=== PATIENT | female | born 1980 | race Caucasian/White ===

== ENCOUNTER 2019-05-05 17:38 | Emergency (ER) | payer SELFPAY ==
[2019-05-05 17:52] VITALS: BP 171/78; PULSE 99; RESP 20; TEMP 37.2; O2SAT 98; BMI 37.1
--- NOTE | 2019-05-05 17:52 | USCV_ITS ---
Shannan Wray Age: 38 Gender: F : 1980 Exam Date: 05/05/2019 18:05 Ordering Phys: Angel Carrasco Technologist: Maile Han Exam Location: [facility] [place] Indication: Failed injection Rt Ante Cub space HISTORY: Failed injection Rt. AC Space. Arm swollen, red and extremely painful. PROCEDURES: Venous duplex imaging was performed in only the right upper extremity. The following venous structures were evaluated: internal jugular vein, subclavian vein, axillary vein, and brachial veins. In addition, the basilic vein, cephalic vein, radial vein, and ulnar vein. Serial compression, augmentation maneuvers, and spectral Doppler flow evaluation were performed. FINDINGS: No obvious DVT or superficial thrombus noted at this time. There appears to be edema and question of infiltration of injected material. This is somewhat ltd study because of patients extreme pain. The veins are found to be compressible with no evidence of thrombosis CONCLUSIONS No evidence of thrombosis in the above-mentioned identifiable veins Dr Sunita Ramos MD [facility] (Electronically Signed) Final Date: 06 May 2019 17:13 S
--- NOTE | 2019-05-05 17:54 | W.ED.EXTPRO ---
HPI - Extremity Problem General: Chief complaint: Extremity Injury, Upper Stated complaint: right arm swelling/pain Time Seen by Provider: 05/05/19 17:50 History of Present Illness: HPI Narrative: Patient comes in today for complaints of right arm pain with redness and swelling. Patient admits to using IV methamphetamines yesterday. Patient states today she woke up and she noticed redness and tenderness to the arm. Patient appears restless. Patient appears in moderate pain. Review of Systems General: Reports: 10 or more systems reviewed and unremarkable except in HPI and below Skin/Breast: Reports: redness (appears urticaric to right inner arm) PFS ED PFSH: Statuses (acute, chronic, etc) shown below reflect problem list status as previously entered and may not be historically accurate Social History Smoking and tobacco status: current every day smoker Physical Exam Const: COMMON NORMALS: no apparent distress and oriented x3 GENERAL APPEARANCE: cooperative HENMT: COMMON NORMALS: normocephalic, external ears normal, EAC's normal, TM's normal bilaterally and external nose normal HEAD & SCALP: normal to inspection and normocephalic FACE & SINUS: normal facial exam NOSE: external nose normal GENERAL EAR: hearing not grossly impaired EXTERNAL EAR: Yes external ears normal EXTERNAL AUDITORY CANAL: EAC's normal TYMPANIC MEMBRANE: TM's normal bilaterally MOUTH: oral and palatal mucosa normal THROAT: posterior oropharynx normal Eye: COMMON NORMALS: PERRL and EOMs intact bilaterally PUPIL: Yes PERRL Neck/C-Spine: COMMON NORMALS: full ROM and no lymphadenopathy Lymph: LYMPHATIC: no lymphedema noted Chest: COMMONS NORMALS: inspection of chest normal and palpation of chest normal Resp: COMMON NORMALS: normal respiratory effort and clear to auscultation bilaterally AUSCULTATION: clear to auscultation bilaterally Cardio: COMMON NORMALS: regular rate and regular rhythm RATE: regular rate RHYTHM: regular rhythm GI: COMMON NORMALS: normal to inspection, nondistended, normoactive bowel sounds and non-tender : COMMON NORMALS: Yes no CVA tenderness BLADDER/KIDNEY EXAM: Yes no CVA tenderness Back/Pelvis: COMMON NORMALS: no CVA tenderness and thoracic and lumbar spine normal to inspection Extremity: COMMON NORMALS: normal to inspection GENERAL: No edema Neuro: COMMON NORMALS: oriented x3, moves all extremities and no focal motor deficits Psych: COMMON NORMALS: mental status grossly normal and cooperative Skin: NARRATIVE SKIN EXAM: red urticaric eruption to right inner arm, distal pulses intact. Patient guarded with movement. Course Vital Signs: Vital signs: Vital Signs Temperature 99.0 F 05/05/19 18:16 Pulse Rate 91 05/05/19 18:17 Respiratory Rate 18 05/05/19 18:16 Blood Pressure 156/90 05/05/19 18:16 Pulse Oximetry 99 05/05/19 18:16 MDM - Extremity (Nontraumatic) MDM Narrative: Medical decision making narrative: Patient comes in today for concerns of redness and tenderness to her right arm. Patient admits to injecting meth yesterday into that arm. Patient exam notes some urticarial type redness to the right arm. Respirations are even lungs are clear to auscultation. Skin is warm and dry color is pink. Vital signs are stable. Differential diagnosis includes allergic reaction, urticaria, cellulitis, DVT, thrombophlebitis. Ultrasound extremity noted no thrombus or DVT. I suspect patient had a extravasation of the injection into this cellular tissue instead of into the vein that caused this reaction and extravasation event. Recommended warm packs to the area, encourage patient to drink plenty of fluids, will cover with Bactrim for cellulitis, and cover with ibuprofen to help with pain. Recommend follow-up with primary care return to the ER for high fever or new concerns. Discharge Plan Discharge Patient Disposition: Home, Self-Care Clinical Impression: Extravasation injury, Substance abuse Condition: Stable Prescriptions: New ibuprofen 800 mg tablet 800 mg PO TID PRN (Reason: pain) Qty: 30 RF: 0 Bactrim DS 800-160 mg tablet 1 tab PO BID 10 Days Qty: 20 RF: 0 Discharge Orders: Discharge Order (Routine); Ordered 05/05/19 Ordered By: Angel Carrasco Referrals: Luis Fernando Duarte FNP [Family Provider] - Discharge Diet: Usual diet Discharge Activity: Increase activity as tolerated Patient Instructions: Cellulitis (ED) Activity Restrictions/Additional Instructions: Home and rest Warm compresses to the arm Drink plenty of water Medications as directed Follow-up with primary care in three days Return to ER for high fever or new concerns Stand Alone Forms: Work/School Release Coding Level of Care Code ED Floor And Wall Applier Liquid for Kim Fwgilbert Exam Problem Focused
[2019-05-05] MEDS: diphenhydrAMINE 50 mg/mL SDV 1mL IM (18:05)
[2019-05-05] MEDS: HYDROcodone-acetaminophen 7.5-325 mg Tablet 1 TAB PO (18:08)
[2019-05-05 18:16] VITALS: BP 156/90; PULSE 91; RESP 18; TEMP 37.2; O2SAT 99
[2019-05-05 18:17] VITALS: PULSE 91
[2019-05-05 19:59] VITALS: BP 150/81; PULSE 89; RESP 19; O2SAT 98
== END 2019-05-05 20:00 | disposition home or self-care (01) ==
PROVIDERS: Emergency Provider Nurse Practitioner Family; Family Provider Nurse Practitioner Family
DX: T43.621A Poisoning by amphetamines, accidental (unintentional), initial encounter (principal); F15.10 Other stimulant abuse, uncomplicated; F17.210 Nicotine dependence, cigarettes, uncomplicated
CPT/HCPCS: 93971; 96372; 99281; 99284; J1200

== ENCOUNTER 2020-05-07 17:36 | Inpatient (IN) | payer SELFPAY ==
[2020-05-07 17:51] VITALS: BP 161/98; PULSE 83; RESP 14; TEMP 36.4; O2SAT 100; BMI 35.5
--- NOTE | 2020-05-07 18:04 | ED_ITS ---
HPI - Psych General: Chief Complaint: Psychiatric Symptoms Stated Complaint: SI Time Seen by Provider: 05/07/20 18:00 History of Present Illness: HPI Narrative: Patient long history of drug abuse. Patient was in drug court today and she told that she needed help that she did not want to go on living and she is hoping that doing drugs will end her life. She is very tearful and wants her life to be over with. she states she wants help from her drug addiction and her depression she does not have a plan MD complaint: suicidal ideation and feels depressed Onset (ago): year(s) Duration: getting worse History of same: Yes Relieving factors: none Exacerbating factors: drug use Context: recent drug abuse (Meth) Associated psychiatric symptoms: depression and suicidal ideation Associated symptoms: Reports depression and suicidal ideation Review of Systems Const: Denies: fever(s), chills or body aches Eyes: Denies: change in vision or blurry vision ENMT: Denies: throat pain or nasal congestion Card: Denies: chest pain or dyspnea on exertion Resp: Denies: dyspnea, productive cough or non-productive cough GI: Denies: abdominal pain, nausea or vomiting Musc: Denies: extremity pain Skin/Breast: Denies: rash Neuro: Denies: headache(s) Psych: Reports: depression and suicidal ideation; Denies: anxiety Butch/Lymph: Denies: easy bruising PFSH ED PFSH: Social History Smoking and tobacco status: current every day smoker Current gender identity: Female Physical Exam Const: COMMON NORMALS: no acute distress, average body habitus and patient oriented x3 HENMT: COMMON NORMALS: normocephalic HEAD & SCALP: normal to inspection and normocephalic FACE & SINUS: normal facial exam Eye: COMMON NORMALS: conjunctivae normal GENERAL EYE: appearance normal, both eyes and all related structures CONJUNCTIVA: Yes conjunctivae normal Neck/C-Spine: COMMON NORMALS: no JVD Chest: COMMONS NORMALS: normal inspection of the chest Resp: COMMON NORMALS: normal respiratory effort and clear to auscultation bilaterally AUSCULTATION: clear to auscultation bilaterally Cardio: COMMON NORMALS: no JVD, regular rate and regular rhythm RATE: regular rate RHYTHM: regular rhythm GI: COMMON NORMALS: Normal to inspection, nondistended, normoactive bowel sounds present Extremity: COMMON NORMALS: normal to inspection and full ROM Neuro: COMMON NORMALS: patient oriented x3 Psych: COMMON NORMALS: mental status grossly normal, cooperative and speech normal ATTITUDE: Yes calm ACTIVITY/MOTOR BEHAVIOR: Yes appropriate eye contact SPEECH: Yes normal speech MOOD & AFFECT: Yes depressed mood MDM - Psych MDM Narrative: Medical decision making narrative: Spoke with Dr. Metcalf he will admit patient to neuropsych Lab Data: Labs: Lab Results 05/07/20 05/07/20 05/07/20 Range/Units 18:12 18:12 20:51 WBC 6.9 (4.0-10.0) 10^3/ uL RBC 5.37 H (4.1-5.3) 10^6/u L Hgb 15.8 H (11.5-15.3) g/dL Hct 47.4 H (37.0-47.0) % MCV 88.3 (81-99) fL MCH 29.4 (28.0-34.0) pg MCHC 33.3 (30.0-36.0) g/dL RDW 12.1 (12.1-15.1) % Plt Count 275 (130-400) 10^3/c mm MPV 10.0 (7.4-10.4) fL Neut % (Auto) 56.5 % Lymph % (Auto) 32.8 % Saunders % (Auto) 7.9 % Eos % (Auto) 1.9 % Baso % (Auto) 0.6 % Neut # (Auto) 3.91 (1.8-7.7) 10^3/u L Lymph # (Auto) 2.3 (0.8-4.8) 10^3/u L Saunders # (Auto) 0.6 (0.2-0.9) 10^3/u L Eos # (Auto) 0.1 (0.0-0.8) 10^3/u L Baso # (Auto) 0.0 (0.0-0.1) 10^3/u L Nucleated RBC % (a uto) 0 % Nucleated RBCs # 0.0 /100WBC Sodium 137 (136-145) mmol/L Potassium 3.4 L (3.5-5.1) mmol/L Chloride 98 (98-107) mmol/L Carbon Dioxide 29 (22-29) mmol/L Anion Gap 13.4 (5-19) BUN 12 (6-20) mg/dL Creatinine 0.5 (0.5-0.9) mg/dL GFR Calculation 137.4 H (90-130) mL/min Glucose 85 (65-115) mg/dL Calculated Osmolal ity 283 L (285-295) mOsm/k g Calcium 9.2 (8.5-10.5) mg/dL Total Bilirubin 0.3 (0.15-1.2) mg/dL AST 41 H (0-32) U/L ALT 45 H (0-33) U/L Alkaline Phosphata se 74 (35-105) IU/L Total Protein 8.2 (6.6-8.7) g/dL Albumin 4.5 (3.5-5.2) g/dL Globulin 3.7 (1.3-4.6) g/dL Urine Color (Yellow) Urine Appearance (CLEAR) Urine pH (5-7) Ur Specific Gravit y (1.005-1.030) Urine Protein (Negative) Urine Glucose (UA) (Normal) Urine Ketones (Negative) Urine Blood (Negative) Urine Nitrate (Negative) Urine Bilirubin (Negative) Urine Urobilinogen (Negative) mg/dL Ur Leukocyte Daniela ase (Negative) Urine RBC (0-2) /hpf Urine WBC (0-5) /hpf Ur Squamous Epith Cells (0-5) /hpf Amorphous Sediment Urine Bacteria (NONE) /hpf Urine Mucus /hpf Salicylates 0.4 L (3-10) mg/dL Urine Opiates Scre en Negative (Negative) ng/mL Acetaminophen < 5.0 L (10-30) ug/mL Ur Barbiturates Sc reen Negative (Negative) ng/mL Ur Phencyclidine S crn Negative (Negative) ng/mL Ur Amphetamines Sc reen Positive H (Negative) ng/mL U Benzodiazepines Scrn Negative (Negative) ng/mL Urine Cocaine Scre en Negative (Negative) ng/mL U Marijuana (THC) Screen Positive H (Negative) ng/mL Ethyl Alcohol < 10 (0-10) mg/dL 05/07/20 Range/Units 20:51 WBC (4.0-10.0) 10^3/ uL RBC (4.1-5.3) 10^6/u L Hgb (11.5-15.3) g/dL Hct (37.0-47.0) % MCV (81-99) fL MCH (28.0-34.0) pg MCHC (30.0-36.0) g/dL RDW (12.1-15.1) % Plt Count (130-400) 10^3/c mm MPV (7.4-10.4) fL Neut % (Auto) % Lymph % (Auto) % Saunders % (Auto) % Eos % (Auto) % Baso % (Auto) % Neut # (Auto) (1.8-7.7) 10^3/u L Lymph # (Auto) (0.8-4.8) 10^3/u L Saunders # (Auto) (0.2-0.9) 10^3/u L Eos # (Auto) (0.0-0.8) 10^3/u L Baso # (Auto) (0.0-0.1) 10^3/u L Nucleated RBC % (a uto) % Nucleated RBCs # /100WBC Sodium (136-145) mmol/L Potassium (3.5-5.1) mmol/L Chloride (98-107) mmol/L Carbon Dioxide (22-29) mmol/L Anion Gap (5-19) BUN (6-20) mg/dL Creatinine (0.5-0.9) mg/dL GFR Calculation (90-130) mL/min Glucose (65-115) mg/dL Calculated Osmolal ity (285-295) mOsm/k g Calcium (8.5-10.5) mg/dL Total Bilirubin (0.15-1.2) mg/dL AST (0-32) U/L ALT (0-33) U/L Alkaline Phosphata se (35-105) IU/L Total Protein (6.6-8.7) g/dL Albumin (3.5-5.2) g/dL Globulin (1.3-4.6) g/dL Urine Color [place] (Yellow) Urine Appearance Hazy A (CLEAR) Urine pH 6 (5-7) Ur Specific Gravit y 1.030 (1.005-1.030) Urine Protein Trace (Negative) Urine Glucose (UA) Trace H (Normal) Urine Ketones Negative (Negative) Urine Blood Neg (Negative) Urine Nitrate Positive H (Negative) Urine Bilirubin Neg (Negative) Urine Urobilinogen Norm (Negative) mg/dL Ur Leukocyte Daniela ase 1+ H (Negative) Urine RBC 0-4 H (0-2) /hpf Urine WBC 5-10 H (0-5) /hpf Ur Squamous Epith Cells 0-4 H (0-5) /hpf Amorphous Sediment Not Reportable Urine Bacteria 2+ H (NONE) /hpf Urine Mucus 3+ /hpf Salicylates (3-10) mg/dL Urine Opiates Scre en (Negative) ng/mL Acetaminophen (10-30) ug/mL Ur Barbiturates Sc reen (Negative) ng/mL Ur Phencyclidine S crn (Negative) ng/mL Ur Amphetamines Sc reen (Negative) ng/mL U Benzodiazepines Scrn (Negative) ng/mL Urine Cocaine Scre en (Negative) ng/mL U Marijuana (THC) Screen (Negative) ng/mL Ethyl Alcohol (0-10) mg/dL Discharge Plan Discharge Condition: Good Prescriptions: No Action buspirone 5 mg tablet 7.5 mg PO BID RF: 0 ibuprofen 800 mg tablet 800 mg PO TID PRN (Reason: pain) Qty: 30 RF: 0 Coding Level of Care Code ED Seam Rubbing Machine Operator for Chg Fwd Exam Comprehensive
[2020-05-07 18:21] LABS: Basophils % 0.6 %; Eosinophils # 0.1 10^3/uL (0.0-0.8); Eosinophils % 1.9 %; Hematocrit 47.4 % (37.0-47.0); Hemoglobin 15.8 g/dL (11.5-15.3); Lymphocytes # 2.3 10^3/uL (0.8-4.8); Lymphocytes % 32.8 %; Mean Corpuscular HGB Conc 33.3 g/dL (30.0-36.0); Mean Corpuscular Hemoglobin 29.4 pg (28.0-34.0); Mean Corpuscular Volume 88.3 fL (81-99); Monocytes # 0.6 10^3/uL (0.2-0.9); Monocytes % 7.9 %; Neutrophils # 3.91 10^3/uL (1.8-7.7); Neutrophils % 56.5 %; Nucleated Red Blood Cells % 0 %; Platelet Count 275 10^3/cmm (130-400); Red Blood Count 5.37 10^6/uL (4.1-5.3); Red Cell Distribution Width 12.1 % (12.1-15.1); White Blood Count 6.9 10^3/uL (4.0-10.0)
[2020-05-07 18:42] LABS: Alanine Aminotransferase 45 U/L (0-33); Albumin Level 4.5 g/dL (3.5-5.2); Alkaline Phosphatase 74 IU/L (35-105); Anion Gap 13.4 (5-19); Aspartate Amino Transferase 41 U/L (0-32); Blood Urea Nitrogen 12 mg/dL (6-20); Calcium 9.2 mg/dL (8.5-10.5); Carbon Dioxide 29 mmol/L (22-29); Chloride 98 mmol/L (98-107); Globulin 3.7 g/dL (1.3-4.6); Glomerular Filtration Rate 137.4 mL/min (90-130); Glucose 85 mg/dL (65-115); Osmolality Calculated 283 mOsm/kg (285-295); Potassium 3.4 mmol/L (3.5-5.1); Salicylate 0.4 mg/dL (3-10); Sodium 137 mmol/L (136-145); Total Bilirubin 0.3 mg/dL (0.15-1.2); Total Protein 8.2 g/dL (6.6-8.7)
[2020-05-07 18:54] LABS: Acetaminophen < 5.0 ug/mL (10-30); Alcohol Level < 10 mg/dL (0-10)
[2020-05-07 21:22] LABS: Amphetamines Screen Urine Positive (Negative); Barbiturates Screen Urine Negative (Negative); Benzodiazepines Screen Urine Negative (Negative); Cocaine Screen Urine Negative (Negative); Opiate Screen Urine Negative (Negative); PCP Screen Urine Negative (Negative); THC Screen Urine Positive (Negative)
[2020-05-07 21:25] LABS: Blood Urine Neg (Negative); Glucose Urine UA Trace (Normal); Ketones Urine Negative (Negative); Nitrate Urine Positive (Negative); Protein Urine Trace (Negative); Urine Appearance Hazy (CLEAR); Urine Color Orange (Yellow); pH Urine 6 (5-7)
[2020-05-07 21:26] LABS: Add Urine Microscopic? YES; Bilirubin Urine Neg (Negative); Leukocyte Esterase Urine 1+ (Negative); Urobilinogen Urine Norm (Negative)
[2020-05-07 21:30] LABS: Add Urine Culture? Yes; Bacteria Urine 2+ /hpf; Mucus Urine 3+ /hpf; RBC Urine 0-4 /hpf (0-2); Squamous Epithelial Cell Urine 0-4 /hpf (0-5)
[2020-05-07 22:29] LABS: HCG Qualitative Urine. Negative (Negative)
[2020-05-07 22:32] VITALS: BP 159/92; PULSE 78; RESP 14; O2SAT 98
[2020-05-07 22:50] VITALS: BP 127/86; PULSE 74; RESP 18; TEMP 36.8; O2SAT 99
[2020-05-07] MEDS: nicotine 2 mg Gum BUCCAL (23:07)
[2020-05-07] MEDS: hyDROXYzine 25 mg Capsule 50 MG PO (23:07)
[2020-05-07] MEDS: trazodone 50 mg Tablet PO (23:07)
[2020-05-07] MEDS: OLANZapine 5 mg ODT PO (23:50)
[2020-05-08 06:00] VITALS: BP 101/62; PULSE 68; RESP 19; TEMP 36.3; O2SAT 96
--- NOTE | 2020-05-08 08:31 | PC.NURSE ---
INFLUENZA VACCINE, 1 SINGLE DOSE GIVEN IM IN LEFT DELTOID. PT EDUCATED ON MED GIVEN AND VERBALIZED UNDERSTANDING. WILL CONT TO MONITOR INJECTION SITE FOR ANY REDNESS, SWELLING, OR IRRITATION. LOT [id number] EXP 10/02/20
[2020-05-08 13:51] VITALS: BP 126/69; PULSE 67; RESP 18; TEMP 37.1; O2SAT 94
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
--- NOTE | 2020-05-08 17:00 | PC.RESP ---
Smoking Cessation information sent to patient.
[2020-05-08 20:21] VITALS: BP 121/75; PULSE 68; RESP 18; TEMP 36.7; O2SAT 96
[2020-05-08] MEDS: hyDROXYzine 25 mg Capsule 50 MG PO (20:41)
[2020-05-08] MEDS: trazodone 50 mg Tablet PO (20:42)
[2020-05-09 06:00] VITALS: BP 114/60; PULSE 66; RESP 16; TEMP 37; O2SAT 95
[2020-05-09] MEDS: fluoxetine 20 mg Capsule PO (07:58)
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
[2020-05-09 13:26] VITALS: BP 135/81; PULSE 55; RESP 18; TEMP 37.1; O2SAT 98
[2020-05-09] MEDS: prazosin 1 mg Capsule PO (21:20)
[2020-05-09 21:21] VITALS: BP 129/75; PULSE 57; RESP 18; TEMP 36.6; O2SAT 93
[2020-05-10 06:00] VITALS: BP 224/73; PULSE 57; RESP 15; TEMP 36.6; O2SAT 93
[2020-05-10] MEDS: fluoxetine 20 mg Capsule PO (08:13)
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
[2020-05-10 14:00] VITALS: RESP 18
[2020-05-10 14:14] VITALS: BP 224/73; PULSE 57; RESP 15; TEMP 36.6; O2SAT 93
== END 2020-05-10 15:23 | disposition home or self-care (01) | DRG 881 ==
LOC: ER 21:34 → NP 22:17
PROVIDERS: Admitting Provider Psychiatry & Neurology Psychiatry; Emergency Provider Nurse Practitioner Family; PCP Nurse Practitioner Family; Visit Provider Psychiatry & Neurology Psychiatry
DX: F32.9 Major depressive disorder, single episode, unspecified (principal); R45.851 Suicidal ideations; F12.10 Cannabis abuse, uncomplicated; F17.210 Nicotine dependence, cigarettes, uncomplicated; Z62.810 Personal history of physical and sexual abuse in childhood
CPT/HCPCS: 12345; 36415; 80053; 80306; 80307; 81001; 81025; 85025; 87086; 90471; 90686; 99284

== ENCOUNTER 2021-04-15 11:27 | Emergency (ER) | payer SELFPAY ==
[2021-04-15 11:56] VITALS: BP 194/95; PULSE 67; RESP 16; TEMP 36.7; O2SAT 96; BMI 37.1
[2021-04-15 14:31] LABS: Basophils % 0.6 %; Eosinophils # 0.1 10^3/uL (0.0-0.8); Eosinophils % 1.8 %; Hematocrit 43.9 % (37.0-47.0); Hemoglobin 14.5 g/dL (11.5-15.3); Lymphocytes # 1.5 10^3/uL (0.8-4.8); Lymphocytes % 20.2 %; Mean Corpuscular Hemoglobin 28.9 pg (28.0-34.0); Mean Corpuscular Volume 87.6 fl (81-99); Mean Platelet Volume 9.8 fL (7.4-10.4); Monocytes # 0.6 10^3/uL (0.2-0.9); Monocytes % 8.2 %; Neutrophils # 4.99 10^3/uL (1.8-7.7); Neutrophils % 68.9 %; Nucleated Red Blood Cells % 0 %; Platelet Count 252 10^3/cmm (130-400); Red Blood Count 5.01 10^6/uL (4.1-5.3); Red Cell Distribution Width 12.4 % (12.1-15.1); White Blood Count 7.2 10^3/uL (4.0-10.0)
--- NOTE | 2021-04-15 14:50 | PC.NURSE ---
1440- dr. Mack and Leticia Nuñez at bedside performing pelvic procedure. patient in no obvious distress.
--- NOTE | 2021-04-15 14:53 | ED_ITS ---
HPI - General Adult General: Chief complaint: Vaginal Bleeding Stated complaint: Bleeding heavy for 20 day with clots Time Seen by Provider: 04/15/21 14:04 History of Present Illness: HPI narrative: Patient is a 46-year-old female with no significant past medical history presents emergency room with complaints of vaginal bleeding worsening over the last 20 days. Patient has no prior history of menorrhagia. Patient has been better. Start about 20 days, since then, patient has had worsening/heavy bleeding with passage of clots. Patient reports that she went through about 4 pads today in 1 hr. Patient is not sexually active denies any vaginal discharge, has no blood thinner or antiplatelet use. Onset: 20 days pena Duration:20 days Location:home Severity:moderate Associated symptoms: Deny chest pain, dyspnea, nausea, rash, palpitations or vomiting Review of Systems Const: Denies: fever(s) or chills Eyes: Denies: change in vision ENMT: Denies: mouth pain Card: Denies: chest pain or palpitations Resp: Denies: dyspnea or non-productive cough GI: Denies: abdominal pain, nausea, vomiting or diarrhea : Reports: vaginal bleeding; Denies: dysuria Musc: Denies: extremity pain Skin/Breast: Denies: rash or new lesions Neuro: Denies: weakness in extremities Psych: Reports: other (Normal mood) Butch/Lymph: Denies: easy bruising PFSH ED PFSH: Medical History Strain of right knee Family History (Updated 04/15/21 @ 15:59 by Klaus Mack MD) Denies family history of Bleeding disorder Cancer Social History Smoking and tobacco status: current every day smoker cigarettes Packs smoked per day: 0.25 Years cigarettes smoked: 30 Quit status (tobacco): considering quitting Second hand smoke exposure: Yes Current gender identity: Female Female Reproductive History: Date of last menstrual period: 04/15/21 Physical Exam Const: COMMON NORMALS: alert HENMT: COMMON NORMALS: atraumatic HEAD & SCALP: atraumatic MOUTH: moist mucous membranes not abnormal Eye: COMMON NORMALS: EOMs intact bilaterally and conjunctivae normal CONJUNCTIVA: Yes conjunctivae normal Neck/C-Spine: COMMON NORMALS: full ROM and supple Resp: COMMON NORMALS: normal respiratory effort and clear to auscultation bilaterally AUSCULTATION: clear to auscultation bilaterally Cardio: COMMON NORMALS: regular rate RATE: regular rate GI: COMMON NORMALS: Soft to palpation and non-tender PALPATION: Yes Soft to palpation : BIMANUAL EXAM - ADNEXA, OTHER: Yes Other OTHER: Exam supervised by Leticia RN, External genitalia wnl. No erythema around cervical os, os closed, no discharge, +mild pool of blood in the vaginal vault, no active source of bleeding. No CMT, no adnexal tenderness. Extremity: COMMON NORMALS: full ROM Neuro: SENSORIUM/ORIENTATION: Yes alert MOTOR EXAM: No Abnormal motor strength present and Other motor observations present (no focal motor deficits) Psych: COMMON NORMALS: speech normal SPEECH: Yes normal speech MOOD & AFFECT: Yes euthymic mood Course Vital Signs: Vital signs: Vital Signs Temperature 98.0 F 04/15/21 11:56 Pulse Rate 63 04/15/21 18:12 Respiratory Rate 16 04/15/21 18:12 Blood Pressure 153/78 04/15/21 18:12 Pulse Oximetry 96 04/15/21 18:12 MDM - General Adult MDM Narrative: Medical decision making narrative: Patient is a 40-year-old female presents emergency room with 20 days of heavy vaginal bleeding. Exam, patient is hemodynamically stable, no conjunctival pallor. Hemoglobin of 14.5 today. Patient has no signs of active bleeding on pelvic exam. Transvaginal ultrasound did not show any focal findings. hCG negative. I have discussed case with Dr. Palacio. She recommended close outpatient follow- up for biopsy. She does not recommend any outpatient medicine (including OCP and progerstone pills) at this time prior to biopsy. I have given patient follow up with our rn case manager hospice to be seen by Dr. Palacio for bleeding and possible biopsy. Patient aware of a call from our rn case manager hospice to schedule for appointment(s) and verbalizes understanding of the importance of following up. Disposition: Discharge. Patient counseled regarding diagnostic impression, treatment plan. Patient given ED strict return precautions to return for co ntinuation, worsening, or development of new symptoms. Instructed to f/u w/ Dr. Palacio and PCP regarding symptoms today. Patient verbalized understanding. She was given strict return precaution for any worsening bleeding, lightheadedness, or any new or concerning complaints. Lab Data: Labs: Lab Results 04/15/21 04/15/21 04/15/21 14:18 14:18 14:18 WBC 7.2 10^3/uL 10^3/ uL (4.0-10.0) RBC 5.01 10^6/uL 10^6 /uL (4.1-5.3) Hgb 14.5 g/dL g/dL (11.5-15.3) Hct 43.9 % % (37.0-47.0) MCV 87.6 fl fl (81-99) MCH 28.9 pg pg (28.0-34.0) MCHC 33.0 g/dL g/dL (30.0-36.0) RDW 12.4 % % (12.1-15.1) Plt Count 252 10^3/cmm 10^3 /cmm (130-400) MPV 9.8 fL fL (7.4-10.4) Neut % (Auto) 68.9 % % Lymph % (Auto) 20.2 % % Caswell % (Auto) 8.2 % % Eos % (Auto) 1.8 % % Baso % (Auto) 0.6 % % Neut # (Auto) 4.99 10^3/uL 10^3 /uL (1.8-7.7) Lymph # (Auto) 1.5 10^3/uL 10^3/ uL (0.8-4.8) Caswell # (Auto) 0.6 10^3/uL 10^3/ uL (0.2-0.9) Eos # (Auto) 0.1 10^3/uL 10^3/ uL (0.0-0.8) Baso # (Auto) 0.0 10^3/uL 10^3/ uL (0.0-0.1) Nucleated RBC % (a uto) 0 % % Nucleated RBCs # 0.0 /100WBC /100W BC APTT 47.0 SECONDS H SE CONDS (23.9-36.7) HCG, Qual Urine Color Urine Appearance Urine pH Ur Specific Gravit y Urine Protein Urine Glucose (UA) Urine Ketones Urine Blood Urine Nitrate Urine Bilirubin Urine Urobilinogen Ur Leukocyte Daniela ase Urine RBC Urine WBC Ur Squamous Epith Cells Amorphous Sediment Urine Bacteria Blood Type O Positive Rho(D) Type Positive Antibody Screen Negative 04/15/21 04/15/21 15:20 15:20 WBC RBC Hgb Hct MCV MCH MCHC RDW Plt Count MPV Neut % (Auto) Lymph % (Auto) Caswell % (Auto) Eos % (Auto) Baso % (Auto) Neut # (Auto) Lymph # (Auto) Caswell # (Auto) Eos # (Auto) Baso # (Auto) Nucleated RBC % (a uto) Nucleated RBCs # APTT HCG, Qual Negative (Negative) Urine Color Yellow (Yellow) Urine Appearance Clear (CLEAR) Urine pH 5 (5-7) Ur Specific Gravit y 1.025 (1.005-1.030) Urine Protein Trace (Negative) Urine Glucose (UA) Norm (Normal) Urine Ketones Negative (Negative) Urine Blood 3+ H (Negative) Urine Nitrate Negative (Negative) Urine Bilirubin 1+ H (Negative) Urine Urobilinogen 4 mg/dL H mg/dL (Negative) Ur Leukocyte Daniela ase Negative (Negative) Urine RBC 50-80 /hpf H /hpf (0-2) Urine WBC Rare /hpf /hpf (0-5) Ur Squamous Epith Cells Rare /hpf /hpf (0-5) Amorphous Sediment 4+ /hpf /hpf Urine Bacteria Trace /hpf /hpf (NONE) Blood Type Rho(D) Type Antibody Screen Imaging Data^: Other Imaging: Radiologist's impression: [address] [id number] ReportSigned Patient: Shannan Wray StarUnit #: [id number]: [id number]#:[id number]/Sex: 40 / FADM Date: 04/15/21Loc: ERRoom/Bed:Attending Dr: Ordering Provider/Ordering MD: Klaus Mack MD Date of Service: 04/15/21 Procedure(s): US transvaginal [id number] Accession Number(s): [id number] Report Number: [id number] PROCEDURE INFORMATION: Exam: US Pelvis, Transvaginal Exam date and time: 04/15/2021 3:31 PM Age: 40 years old Clinical indication: Condition or disease; Other: Bleeding x20 days; Prior surgery; Surgery date: 6+ months; Surgery type: Tubes tied; Additional info: Eval for endometrial thickening TECHNIQUE: Imaging protocol: Real-time transvaginal pelvic ultrasound with image documentation. Transvaginal imaging was used for better evaluation of the endometrium, adnexa, and/or cervix. COMPARISON: CT abdomen pelvis w con* [id number] 09/16/2015 12:17 AM FINDINGS: Uterus: Uterus measures 8.8 cm longitudinal x 4.8 cm AP x 5.7 cm transverse. No solid uterine mass demonstrated. Endometrium measures 11 mm in AP thickness. Cervix: Small nabothian cysts are noted in the cervix. Right ovary/adnexa: Right ovary measures 3.3 x 2.1 x 2.1 cm. Appropriate ovarian blood flow is documented by Doppler. There are 2 simple right adnexal cysts, measuring 1.8 cm and 1.4 cm in diameter respectively. These represent exophytic right ovarian cysts versus paraovarian cysts. Additional small follicular type cysts are demonstrated in the right ovary. Left ovary/adnexa: The left ovary measures 1.7 x 1.2 x 2.2 cm. A slightly complex 9 mm left ovarian cyst noted, likely representing a small hemorrhagic cyst. Additional smaller follicular cysts are noted. Intraperitoneal space: No free intraperitoneal fluid noted in the cul-de-sac. US/US transvaginal [id number] IMPRESSION: 1. Sonographically normal uterus. The endometrium is unremarkable, measuring 11 mm in AP thickness and demonstrating normal echotexture. No endometrial mass/lesion demonstrated. 2. There are 2 simple right adnexa cysts representing exophytic ovarian cyst versus paraovarian cysts. The right adnexal area is otherwise unremarkable. 3. 9 mm hemorrhagic cyst in the left ovary. The left ovary is otherwise unremarkable. Dictated By:Marvin Pal MDSigned By:Marvin Pal MDSigned Date/Time:04/15/21 1754DD/ 1531 Discharge Plan Discharge Patient Disposition: Home Clinical Impression: Vaginal bleeding Condition: Stable Prescriptions: No Action ibuprofen 800 mg tablet 800 mg PO BID PRN (Reason: pain) 20 Days Qty: 40 RF: 0 trazodone 50 mg tablet 100 mg PO .HS PRN (Reason: insomnia) Qty: 60 RF: 2 prazosin 5 mg capsule 10 mg PO .HS Qty: 60 RF: 2 bupropion HCl 150 mg tablet extended release 24 hr 150 mg PO QAM Qty: 30 RF: 2 fluoxetine 20 mg capsule 20 mg PO DAILY 30 Days Qty: 30 RF: 2 hydroxyzine pamoate 25 mg capsule 25 mg PO TID PRN (Reason: anxiety) Qty: 90 RF: 2 naltrexone 50 mg tablet 25 mg PO BID Qty: 30 RF: 2 Discharge Orders: Discharge ED (Routine); Ordered 04/15/21 Ordered By: Klaus Mack Referrals: Luis Fernando Duarte FNP [Primary Care Provider] - Discharge Diet: Advance as tolerated Discharge Activity: Resume usual activity Patient Instructions: Abnormal (Dysfunctional) Uterine Bleeding (ED) Activity Restrictions/Additional Instructions: Our rn case manager hospice will have you follow-up with Dr. Palacio in the next few days for a biopsy. You would be expected to have a phone call with our rn case manager hospice who will put you on the schedule. If you don't hear from us, call: Come back to the emergency we have noticed any significant bleeding, headedness, difficulty breathing, or any new or concerning complaints Coding Level of Care Code ED Roll Grinder Operator for Chg Fwd Exam Comprehensive
--- NOTE | 2021-04-15 15:31 | USR_ITS ---
PROCEDURE INFORMATION: Exam: US Pelvis, Transvaginal Exam date and time: 04/15/2021 3:31 PM Age: 40 years old Clinical indication: Condition or disease; Other: Bleeding x20 days; Prior surgery; Surgery date: 6+ months; Surgery type: Tubes tied; Additional info: Eval for endometrial thickening TECHNIQUE: Imaging protocol: Real-time transvaginal pelvic ultrasound with image documentation. Transvaginal imaging was used for better evaluation of the endometrium, adnexa, and/or cervix. COMPARISON: CT abdomen pelvis w con* [id number] 09/16/2015 12:17 AM FINDINGS: Uterus: Uterus measures 8.8 cm longitudinal x 4.8 cm AP x 5.7 cm transverse. No solid uterine mass demonstrated. Endometrium measures 11 mm in AP thickness. Cervix: Small nabothian cysts are noted in the cervix. Right ovary/adnexa: Right ovary measures 3.3 x 2.1 x 2.1 cm. Appropriate ovarian blood flow is documented by Doppler. There are 2 simple right adnexal cysts, measuring 1.8 cm and 1.4 cm in diameter respectively. These represent exophytic right ovarian cysts versus paraovarian cysts. Additional small follicular type cysts are demonstrated in the right ovary. Left ovary/adnexa: The left ovary measures 1.7 x 1.2 x 2.2 cm. A slightly complex 9 mm left ovarian cyst noted, likely representing a small hemorrhagic cyst. Additional smaller follicular cysts are noted. Intraperitoneal space: No free intraperitoneal fluid noted in the cul-de-sac. US/US transvaginal [id number] IMPRESSION: 1. Sonographically normal uterus. The endometrium is unremarkable, measuring 11 mm in AP thickness and demonstrating normal echotexture. No endometrial mass/lesion demonstrated. 2. There are 2 simple right adnexa cysts representing exophytic ovarian cyst versus paraovarian cysts. The right adnexal area is otherwise unremarkable. 3. 9 mm hemorrhagic cyst in the left ovary. The left ovary is otherwise unremarkable.
[2021-04-15 15:49] LABS: HCG Qualitative Urine. Negative (Negative)
[2021-04-15 15:50] LABS: Add Urine Microscopic? YES; Bilirubin Urine 1+ (Negative); Blood Urine 3+ (Negative); Glucose Urine UA Norm (Normal); Ketones Urine Negative (Negative); Leukocyte Esterase Urine Negative (Negative); Nitrate Urine Negative (Negative); Protein Urine Trace (Negative); Specific Gravity, Urine 1.025 (1.005-1.030); Urine Appearance Clear (CLEAR); Urine Color Yellow (Yellow); Urobilinogen Urine 4 mg/dL (Negative); pH Urine 5 (5-7)
[2021-04-15 15:52] LABS: Add Urine Culture? Yes; Amorphous Sediment Urine 4+ /hpf; Bacteria Urine TRACE /hpf; RBC Urine 50-80 /hpf (0-2); Squamous Epithelial Cell Urine RARE /hpf (0-5); WBC Urine RARE /hpf (0-5)
--- NOTE | 2021-04-15 16:26 | PC.NURSE ---
patient in no obivous distress. patient sleeping comfortably in bed with even chest rise and fall noted. Patient waiting for ultrasound . Family at bedside. Side rails raised x 2 and bed in low, locked position. call light within reach.
[2021-04-15 18:12] VITALS: BP 153/78; PULSE 63; RESP 16; O2SAT 96
--- NOTE | 2021-04-16 15:35 | DCPLANNER ---
commercial property manager had message to schedule a follow up appointment for patient with [facility]. commercial property manager called the [facility], spoke with Gonzalo, gave clinic patients information. commercial property manager was told that patients information would be printed and reviewed. Clinic will call patient with appointment information.
--- NOTE | 2021-04-21 14:58 | DCPLANNER ---
Addendum entered by Emily Yousif 05/30/21 13:06: Patient had a follow up appointment scheduled for 05.19.21 with [facility] - patient did not attend appointment. Addendum entered by Emily Yousif 05/02/21 13:28: Patient has a follow up appointment was scheduled for Wednesday, May 19, 2021 at 8:[address] Nagy at [facility]. Clinic will call patient with appointment information. Original Note: clinical account manager had message to speak with patient about getting established with a primary care physician. clinical account manager will send patient both of the financial aids officer applications to fill out and turn in. When patient sees where she is at with the financial aids officer, she will call window caser to get patient set up with a primary care physician.
== END 2021-04-15 18:14 | disposition home or self-care (01) ==
PROVIDERS: Nurse Practitioner Family; Emergency Provider Emergency Medicine; PCP Nurse Practitioner Family
DX: N93.9 Abnormal uterine and vaginal bleeding, unspecified (principal); F17.210 Nicotine dependence, cigarettes, uncomplicated
CPT/HCPCS: 76830; 81001; 81025; 85025; 85730; 86850; 86900; 87086; 99283; E0352

== ENCOUNTER 2022-05-10 08:41 | Emergency (ER) | payer SELFPAY ==
--- NOTE | 2022-05-10 08:47 | W.ED.URI ---
HPI - URI/Sore Throat General: Chief Complaint: Upper Respiratory Infection Stated Complaint: flu like symptoms Time Seen by Provider: 05/10/22 08:45 Source: patient Mode of arrival: ambulatory Limitations: no limitations History of Present Illness: 41-year-old female presents to the ER today for cough, congestion, shortness of breath, sore throat, body aches and fever for the last 3 days. Patient reports it started Wednesday and patient took a home COVID test which was negative. 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 Patient reports her cough is very tight and nonproductive. She reports she feels a short of breath that she is ever felt before. She reports asthma as a kid but no issues since. She reports a very sore throat. She had fevers yesterday however afebrile this morning. She is only taking DayQuil and NyQuil at home. Review of Systems General: Reports: 10 or more systems reviewed and unremarkable except in HPI and below PFSH ED PFSH: Medical History Strain of right knee Family History Denies family history of Bleeding disorder Cancer Social History Smoking and tobacco status: current every day smoker cigarettes Packs smoked per day: 0.25 Years cigarettes smoked: 30 Quit status (tobacco): considering quitting Second hand smoke exposure: Yes Current gender identity: Female Female Reproductive History: Date of last menstrual period: 04/15/21 Physical Exam Const: COMMON NORMALS: average body habitus, patient oriented x3, no limitations, healthy appearing, alert and well nourished HENMT: COMMON NORMALS: normocephalic, atraumatic, external ears normal, TM's normal bilaterally and moist oral mucous membranes HEAD & SCALP: normocephalic and atraumatic NOSE: Abnormal mucous membranes and turbinates present erythematous EXTERNAL EAR: Yes external ears normal TYMPANIC MEMBRANE: TM's normal bilaterally THROAT: posterior oropharynx abnormal erythema Eye: COMMON NORMALS: conjunctivae normal CONJUNCTIVA: Yes conjunctivae normal Lymph: LYMPHATIC: no lymphadenopathy noted Resp: COMMON NORMALS: normal respiratory effort EFFORT & INSPECTION: Yes able to speak in complete sentences AUSCULTATION: no crackles, no rales, no rhonchi and wheezes lower bilaterally Cardio: COMMON NORMALS: regular rate and regular rhythm RATE: regular rate RHYTHM: regular rhythm GI: COMMON NORMALS: Normal to inspection, nondistended, normoactive bowel sounds present, Soft to palpation and non-tender PALPATION: Yes Soft to palpation Extremity: COMMON NORMALS: normal to inspection and full ROM Neuro: COMMON NORMALS: patient oriented x3 SENSORIUM/ORIENTATION: Yes alert Psych: COMMON NORMALS: mental status grossly normal, Normal thought process present and cooperative THOUGHT PROCESS: Normal thought process present Skin: COMMON NORMALS: no rashes or lesions noted and no wounds GENERAL SKIN EXAM: no rashes or lesions noted Course ED course: Patient presents to the ER with upper respiratory symptoms and known exposure to COVID and flu. We will get COVID and flu swabs. We will also get a chest x-ray and CBC. Patient has significant wheezes with auscultation so we will get nebulizer treatment in the ER today. Vital Signs: Vital signs: Vital Signs Temperature 96.1 F L 05/10/22 08:48 Pulse Rate 118 H 05/10/22 10:04 Respiratory Rate 16 05/10/22 10:02 Pulse Oximetry 95 05/10/22 10:02 Oxygen Delivery Me thod 05/10/22 10:02 MDM - URI/Sore Throat Medical Decision Making COVID and influenza negative. White count within normal limits. Patient sounds significantly improved after nebulizer treatment. Patient is a smoker and has a history of asthma. We will send patient home with an albuterol inhaler as she does not have a nebulizer available to her. We will also start patient on Mucinex to prevent any type of consolidation. Chest x-ray is normal in the ER today. Patient to follow-up with PCP in 4 to 5 days if no improvement. Smoking cessation was advised. Return to work on Wednesday. Patient advised to follow-up with the ER for any new or worsening symptoms. She verbalized understanding was in agreement with the treatment plan. Lab Data 05/10/22 09:37 Radiology Impressions Chest X-Ray 05/10/22 08:57 IMPRESSION: No chest radiographic evidence of acute cardiopulmonary disease. Laboratory Results WBC 7.5 10^3/uL (4.0-10.0) 05/10/22 09:37 RBC 5.02 10^6/uL (4.1-5.3) 05/10/22 09:37 Hgb 14.4 g/dL (11.5-15.3) 05/10/22 09:37 Hct 44.7 % (37.0-47.0) 05/10/22 09:37 MCV 89.0 fl (81-99) 05/10/22 09:37 MCH 28.7 pg (28.0-34.0) 05/10/22 09:37 MCHC 32.2 g/dL (30.0-36.0) 05/10/22 09:37 RDW 12.3 % (12.1-15.1) 05/10/22 09:37 Plt Count 189 10^3/cmm (130-400) 05/10/22 09:37 MPV 10.5 fL (7.4-10.4) H 05/10/22 09:37 Neut % (Auto) 53.5 % 05/10/22 09:37 Lymph % (Auto) 29.5 % 05/10/22 09:37 Pine % (Auto) 9.5 % 05/10/22 09:37 Eos % (Auto) 6.6 % 05/10/22 09:37 Baso % (Auto) 0.5 % 05/10/22 09:37 Neut # (Auto) 4.00 10^3/uL (1.8-7.7) 05/10/22 09:37 Lymph # (Auto) 2.2 10^3/uL (0.8-4.8) 05/10/22 09:37 Pine # (Auto) 0.7 10^3/uL (0.2-0.9) 05/10/22 09:37 Eos # (Auto) 0.5 10^3/uL (0.0-0.8) 05/10/22 09:37 Baso # (Auto) 0.0 10^3/uL (0.0-0.1) 05/10/22 09:37 Nucleated RBC % (auto) 0 % 05/10/22 09:37 Nucleated RBCs # 0.0 /100WBC 05/10/22 09:37 Influenza Type A Ag negative (Negative) 05/10/22 08:58 Influenza Type B Ag negative (Negative) 05/10/22 08:58 SARS-CoV-2 Ag (Rapid) negative (Negative) 05/10/22 08:58 Critical Care Time Critical Care Time: Critical Care Time: No Discharge Plan Discharge Patient Disposition: Home Clinical Impression: URI (upper respiratory infection) Qualifiers: URI type: unspecified viral URI Qualified Code(s): J06.9 - Acute upper respiratory infection, unspecified Condition: Stable Prescriptions: New Ventolin HFA 90 mcg/actuation HFA aerosol inhaler 2 inh inhalation QID PRN (Reason: shortness of breath or wheezing) Qty: 8.5 0RF guaifenesin 600 mg tablet extended release 12hr 600 mg PO BID PRN (Reason: congestion) Qty: 24 0RF benzonatate 100 mg capsule 100 mg PO BID PRN (Reason: cough) Qty: 20 0RF No Action ibuprofen 800 mg tablet 800 mg PO BID PRN (Reason: pain) 20 Days Qty: 40 0RF trazodone 50 mg tablet 100 mg PO .HS PRN (Reason: insomnia) Qty: 60 2RF prazosin 5 mg capsule 10 mg PO .HS Qty: 60 2RF Rx Instructions: Take 1 cap for 3 nights then increase to 2 caps at night. bupropion HCl 150 mg tablet extended release 24 hr 150 mg PO QAM Qty: 30 2RF fluoxetine 20 mg capsule 20 mg PO DAILY 30 Days Qty: 30 2RF hydroxyzine pamoate 25 mg capsule 25 mg PO TID PRN (Reason: anxiety) Qty: 90 2RF naltrexone 50 mg tablet 25 mg PO BID Qty: 30 2RF Discharge Orders: Discharge ED (Routine); Ordered 05/10/22 Ordered By: Anahi Cunningham Discharge Diet: Usual diet Discharge Activity: Resume usual activity Patient Instructions: Opioid Safety, Pain Management Activity Restrictions/Additional Instructions: Take Mucinex and Tessalon Perles as prescribed. Use inhaler as needed for shortness of breath and wheezing. Smoking cessation advised. If no improvement in 4 to 5 days, follow-up with PCP. Work note given. Return to the ER if new or worsening symptoms. Stand Alone Forms: Work/School Release Coding Level of Care Code ED Manager Business Management for [employer] Exam Comprehensive
[2022-05-10 08:48] VITALS: PULSE 65; RESP 16; TEMP 35.6; O2SAT 98; BMI 43.9
--- NOTE | 2022-05-10 08:57 | XRR_ITS ---
PROCEDURE INFORMATION: Exam: XR Chest Exam date and time: 05/10/2022 9:15 AM Age: 41 years old Clinical indication: Shortness of breath; Additional info: SOB, wheezing, cough TECHNIQUE: Imaging protocol: Radiologic exam of the chest. Views: 1 view. COMPARISON: CT cervical spin wo con* [id number] 02/22/2016 7:19 PM FINDINGS: Lungs: Normal lung volumes. No interstitial or airspace opacities. Pleural spaces: No pleural effusion. No pneumothorax. Heart/Mediastinum: Normal heart size. Normal mediastinal contour. Midline trachea. Bones/joints: No acute abnormalities. XR/XR chest 1V portable [id number] IMPRESSION: No chest radiographic evidence of acute cardiopulmonary disease.
[2022-05-10 09:45] LABS: Basophils % 0.5 %; Eosinophils # 0.5 10^3/uL (0.0-0.8); Eosinophils % 6.6 %; Hematocrit 44.7 % (37.0-47.0); Hemoglobin 14.4 g/dL (11.5-15.3); Lymphocytes # 2.2 10^3/uL (0.8-4.8); Lymphocytes % 29.5 %; Mean Corpuscular HGB Conc 32.2 g/dL (30.0-36.0); Mean Corpuscular Hemoglobin 28.7 pg (28.0-34.0); Mean Platelet Volume 10.5 fL (7.4-10.4); Monocytes # 0.7 10^3/uL (0.2-0.9); Monocytes % 9.5 %; Neutrophils % 53.5 %; Nucleated Red Blood Cells % 0 %; Platelet Count 189 10^3/cmm (130-400); Red Blood Count 5.02 10^6/uL (4.1-5.3); Red Cell Distribution Width 12.3 % (12.1-15.1); White Blood Count 7.5 10^3/uL (4.0-10.0)
[2022-05-10 10:02] VITALS: PULSE 110; RESP 16; O2SAT 95
[2022-05-10] MEDS: ipratropium-albuterol 3 mL Neb INHALATION (10:02)
[2022-05-10 10:04] VITALS: PULSE 118
[2022-05-10 10:29] LABS: Influenza A by IFA negative (Negative); Influenza B by IFA negative (Negative); SARS Covid-2 Antigen negative (Negative)
[2022-05-10 10:51] VITALS: BP 148/92; PULSE 69; O2SAT 99
== END 2022-05-10 10:52 | disposition home or self-care (01) ==
PROVIDERS: Emergency Provider Physician Assistant
DX: J06.9 Acute upper respiratory infection, unspecified (principal); F17.210 Nicotine dependence, cigarettes, uncomplicated; Z20.822 Contact with and (suspected) exposure to COVID-19
CPT/HCPCS: 36415; 71045; 85025; 87426; 87804; 94640; 99284